=== PATIENT | female | born 1985 | race Caucasian/White ===

== ENCOUNTER → 2021-12-19 | Outpatient (CLI) | payer MEDICARE, MEDICAID ==
[~2021-12-19] MED LIST: CARB1TAB20; CELE100C; CLON-412 OR; CYMB1CAP5; CYMB1CAP5 OR; LABE1TAB11; LUNE2TAB; Lunesta OR; Metoprolol Tartrate OR; NORMODYNE; SIMV10TA2 OR; SOMA350T; TEGR200T; TRAZ100T; TRAZ100T OR; TRAZ150T OR; VIST50CA; ZOCO10TA; [UNRECOGNIZED DRUG - OTHER]
[2021-12-19 11:23] LABS: BASO # 0.1 10^3/uL (0.0-0.2); EOS # 0.4 10^3/uL (0.0-0.5); EOS % 5.1 % (0.0-3.0); HEMATOCRIT 41.7 % (36.0-47.0); HEMOGLOBIN 13.7 g/dl (12.0-15.5); LYMPH # 2.4 10^3/uL (1.5-5.0); LYMPH % 33.2 % (24.0-44.0); MEAN CORPUSCULAR HEMOGLOBIN 29.1 pg (27.0-33.0); MEAN CORPUSCULAR HGB CONC 32.9 g/dl (32.0-36.5); MEAN CORPUSCULAR VOLUME 88.7 fl (80.0-96.0); MONO # 0.5 10^3/uL (0.0-0.8); MONO % 6.3 % (2.0-8.0); NEUTROPHILS # 3.9 10^3/uL (1.5-8.5); NEUTROPHILS % 54.1 % (36.0-66.0); PLATELET COUNT, AUTOMATED 328 10^3/uL (150-450); WHITE BLOOD COUNT 7.2 10^3/uL (4.0-10.0)
[2021-12-19 11:34] LABS: INR 0.84; PARTIAL THROMBOPLASTIN TIME 27.1 SECONDS (25.9-37.0); PROTHROMBIN TIME 11.9 SECONDS (12.7-14.5)
== END ==
LOC: M LAB 10:24
PROVIDERS: ATTEND Psychiatry & Neurology Neurology
DX: G35 Multiple sclerosis (principal)

== ENCOUNTER → 2021-12-24 | Outpatient (CLI) | payer MEDICARE, MEDICAID ==
[2021-12-24 09:54] LABS: BASO # 0.1 10^3/uL (0.0-0.2); BASO % 1.2 % (0.0-1.0); EOS # 0.3 10^3/uL (0.0-0.5); EOS % 4.5 % (0.0-3.0); HEMATOCRIT 38.4 % (36.0-47.0); HEMOGLOBIN 12.8 g/dl (12.0-15.5); LYMPH # 2.7 10^3/uL (1.5-5.0); LYMPH % 39.5 % (24.0-44.0); MEAN CORPUSCULAR HEMOGLOBIN 29.3 pg (27.0-33.0); MEAN CORPUSCULAR HGB CONC 33.3 g/dl (32.0-36.5); MEAN CORPUSCULAR VOLUME 87.9 fl (80.0-96.0); MONO # 0.5 10^3/uL (0.0-0.8); MONO % 6.9 % (2.0-8.0); NEUTROPHILS # 3.3 10^3/uL (1.5-8.5); NEUTROPHILS % 47.8 % (36.0-66.0); PLATELET COUNT, AUTOMATED 324 10^3/uL (150-450); RED BLOOD COUNT 4.37 10^6/uL (4.00-5.40); WHITE BLOOD COUNT 6.8 10^3/uL (4.0-10.0)
[2021-12-24 10:05] LABS: INR 0.82; PROTHROMBIN TIME 11.7 SECONDS (12.7-14.5)
[2021-12-24 10:06] LABS: PARTIAL THROMBOPLASTIN TIME 26.8 SECONDS (25.9-37.0)
[2021-12-24 11:07] LABS: APPEARANCE, CSF CLEAR (CLEAR); COLOR, CSF COLORLESS (COLORLESS)
[2021-12-24 11:17] LABS: CSF TUBE# CELL CNT TUBE 3
[2021-12-24 11:29] LABS: CSF TUBE# GLU TUBE 1; CSF TUBE# TP TUBE 1; GLUCOSE CSF 55 MG/DL (40-75); TOTAL PROTEIN,CSF 64 MG/DL (15-45)
[2021-12-24 12:30] VITALS: BP 104/54
== END ==
LOC: M IRPRO 09:06
PROVIDERS: ATTEND Psychiatry & Neurology Neurology
DX: G35 Multiple sclerosis (principal)

== ENCOUNTER → 2022-01-19 | Outpatient (CLI) | payer MEDICARE, MEDICAID ==
[2022-01-19 17:35] LABS: BASO # 0.1 10^3/uL (0.0-0.2); EOS # 0.3 10^3/uL (0.0-0.5); EOS % 4.1 % (0.0-3.0); HEMATOCRIT 37.8 % (36.0-47.0); HEMOGLOBIN 12.3 g/dl (12.0-15.5); LYMPH # 2.3 10^3/uL (1.5-5.0); LYMPH % 37.4 % (24.0-44.0); MEAN CORPUSCULAR HEMOGLOBIN 28.9 pg (27.0-33.0); MEAN CORPUSCULAR HGB CONC 32.5 g/dl (32.0-36.5); MEAN CORPUSCULAR VOLUME 88.7 fl (80.0-96.0); MONO # 0.4 10^3/uL (0.0-0.8); MONO % 5.9 % (2.0-8.0); NEUTROPHILS # 3.2 10^3/uL (1.5-8.5); NEUTROPHILS % 51.4 % (36.0-66.0); PLATELET COUNT, AUTOMATED 279 10^3/uL (150-450); RED BLOOD COUNT 4.26 10^6/uL (4.00-5.40); WHITE BLOOD COUNT 6.2 10^3/uL (4.0-10.0)
[2022-01-19 18:15] LABS: HEMOGLOBIN A1c 5.3 %
[2022-01-19 18:45] LABS: ERYTHROCYTE SEDIMENTATION RATE 22 mm/hr (0-20)
[2022-01-19 19:11] LABS: ALBUMIN 3.7 GM/DL (3.2-5.2); ALT/SGPT 18 U/L (12-78); BILIRUBIN,TOTAL 0.3 MG/DL (0.2-1.0); BLOOD UREA NITROGEN 14 MG/DL (7-18); CARBON DIOXIDE LEVEL 25 MEQ/L (21-32); CHLORIDE LEVEL 112 MEQ/L (98-107); CREATININE FOR GFR 0.88 MG/DL (0.55-1.30); GLOMERULAR FILTRATION RATE > 60.0 (>60); GLUCOSE, FASTING 80 MG/DL (70-100); POTASSIUM SERUM 3.9 MEQ/L (3.5-5.1); RHEUMATOID FACTOR QUANT < 10.0 IU/ML (<15.0); SODIUM LEVEL 141 MEQ/L (136-145); TOTAL PROTEIN 6.9 GM/DL (6.4-8.2)
[2022-01-19 19:23] LABS: VITAMIN B12 LEVEL 352 PG/ML
[2022-01-19 19:24] LABS: FOLATE 7.8 NG/ML
[2022-01-19 20:05] LABS: HEPATITIS C VIRUS ABY INDEX > 11.0 INDEX (<0.8)
[2022-01-20 12:53] LABS: DRVV SCREEN 34.4 SEC
[2022-01-20 12:58] LABS: PTT LUPUS TYPE ANTICOAG SCREEN 0.9 (0-1.2)
== END ==
LOC: M LAB 16:20
PROVIDERS: ATTEND Psychiatry & Neurology Neurology
DX: G35 Multiple sclerosis (principal)

== ENCOUNTER 2023-06-10 08:17 | Outpatient (CLI) | payer MEDICARE, MEDICAID ==
[2023-06-10] VITALS (7 sets, daily range): BP systolic 108–127; BP diastolic 55–79; O2SAT 98–100
[~2023-06-10] VITALS: Ht 152.4 cm; Wt 94.0 kg
[~2023-06-10 08:17] MED LIST changes: +ALBUTEROL SULFATE 2.5MG/0.5ML INH NEB SOLN INH PRN; +EPINEPHrine INJ 1 MG/ML 1ML AMP IM PRN; +diphenhydrAMINE 50MG/ML VIAL IV PRN; +methylPREDNISolone 125MG 2ML VIAL IV PRN
[2023-06-10] MEDS ORDERED: diphenhydrAMINE 50MG/ML VIAL IV ONE (08:30)
[2023-06-10] MEDS ORDERED: NS 1,000 ML IV SCH (08:30)
[2023-06-10] MEDS ORDERED: methylPREDNISolone 125MG 2ML VIAL IV ONE (08:30)
[2023-06-10] MEDS ORDERED: ACETAMINOPHEN TAB 650MG DOSE (2X325MG) PO ONE (08:30)
[2023-06-10] MEDS ORDERED: OCRELIZUMAB 300 MG in NS 250 ML IV ONE (08:30)
[2023-06-10] MEDS ORDERED: ACET-897 PO (09:00)
[2023-06-10] MEDS ORDERED: LYRI150C PO (11:33)
[2023-06-10] MEDS ORDERED: BUPR8SUB SL (11:35)
[2023-06-10] MEDS ORDERED: ZOLP10TA2 PO (11:35)
[2023-06-10] MEDS ORDERED: CYCL5TAB PO (11:43)
[2023-06-10] MEDS ORDERED: CYCL-707 PO (11:43)
[2023-06-10] MEDS ORDERED: TOPA1TAB PO (11:43)
[2023-06-10] MEDS ORDERED: PROP10TA56 PO (11:43)
[2023-06-10] MEDS ORDERED: PANT20TA6 PO (11:43)
[2023-06-10] MEDS ORDERED: BUSP30TA PO (11:43)
[2023-06-10] MEDS ORDERED: LUNE2TAB28 PO (11:43)
[2023-06-10] MEDS ORDERED: BRIN1TAB3 PO (11:43)
[2023-06-10] MEDS ORDERED: FERR325T19 PO (11:43)
[2023-06-10] MEDS ORDERED: BACL10TA2 PO (11:45)
== END 2023-06-10 14:30 | disposition home or self-care (01) ==
LOC: M INFU 08:17
PROVIDERS: ATTEND Psychiatry & Neurology Neurology
DX: G35 Multiple sclerosis (principal)
CPT/HCPCS: 96365; 96375; J1200; J2350; J2930

== ENCOUNTER 2023-06-24 08:50 | Outpatient (CLI) | payer MEDICARE, MEDICAID ==
[~2023-06-24] VITALS: Ht 152.4 cm; Wt 95.0 kg
[~2023-06-24 08:50] MED LIST changes: +ACET-897 PO; +BACL10TA2 PO; +BRIN1TAB3 PO; +BUPR8SUB SL; +BUSP30TA PO; +CYCL-707 PO; +CYCL5TAB PO; +FERR325T19 PO; +LUNE2TAB28 PO; +LYRI150C PO; +PANT20TA6 PO; +PROP10TA56 PO; +TOPA1TAB PO; +ZOLP10TA2 PO
[2023-06-24] MEDS ORDERED: NS 1,000 ML IV SCH (09:00)
[2023-06-24] MEDS ORDERED: ACETAMINOPHEN TAB 650MG DOSE (2X325MG) PO ONE (09:00)
[2023-06-24] MEDS ORDERED: diphenhydrAMINE 50MG/ML VIAL IV ONE ×2 (09:00→09:50)
[2023-06-24] MEDS ORDERED: methylPREDNISolone 125MG 2ML VIAL IV ONE (09:00)
[2023-06-24] MEDS ORDERED: OCRELIZUMAB 300 MG in NS 250 ML IV ONE (09:00)
[2023-06-24 10:25] VITALS: BP 104/74; O2SAT 100
[2023-06-24 11:15] VITALS: BP 101/69; O2SAT 100
[2023-06-24 11:45] VITALS: BP 102/63; O2SAT 100
[2023-06-24 12:15] VITALS: BP 115/75; O2SAT 98
[2023-06-24 12:45] VITALS: BP 119/84; O2SAT 99
[2023-06-24 13:29] VITALS: BP 113/68; O2SAT 97
== END 2023-06-24 13:45 | disposition home or self-care (01) ==
LOC: M INFU 08:50
PROVIDERS: ATTEND Psychiatry & Neurology Neurology
DX: K50.80 Crohn's disease of both small and large intestine without complications (principal)
CPT/HCPCS: 96365; 96366; 96367; J1200; J2350; J2930

== ENCOUNTER → 2024-01-12 | Outpatient (CLI) | payer MEDICARE, MEDICAID ==
[~2024-01-12] VITALS: Ht 152.4 cm; Wt 94.5 kg
[~2024-01-12] MED LIST changes: +ACETAMINOPHEN TAB 650MG DOSE (2X325MG) PO ONE; +NS 1,000 ML IV SCH; +OCRELIZUMAB 600 MG in NS 500 ML IV ONE; +diphenhydrAMINE 50MG/ML VIAL IV ONE; +methylPREDNISolone 125MG 2ML VIAL IV ONE
[2024-01-12 08:20] VITALS: BP 118/80; O2SAT 100
[2024-01-12] MEDS: diphenhydrAMINE 50MG/ML VIAL IV ONE (08:59)
[2024-01-12] MEDS: ACETAMINOPHEN TAB 650MG DOSE (2X325MG) PO ONE (08:59)
[2024-01-12] MEDS: methylPREDNISolone 125MG 2ML VIAL IV ONE (08:59)
[2024-01-12] MEDS: OCRELIZUMAB 600 MG in NS 500 ML IV ONE (09:34)
[2024-01-12 10:00] VITALS: BP 117/68; O2SAT 100
[2024-01-12 10:30] VITALS: BP 108/70; O2SAT 100
[2024-01-12 11:00] VITALS: BP 97/88; O2SAT 100
[2024-01-12 12:00] VITALS: BP 101/84; O2SAT 100
[2024-01-12 13:40] VITALS: BP 110/73; O2SAT 100
== END ==
LOC: M INFU 08:21
PROVIDERS: ATTEND Psychiatry & Neurology Neurology
DX: G35 Multiple sclerosis (principal)
CPT/HCPCS: 96365; 96366; J1200; J2350; J2919

== ENCOUNTER 2024-06-13 07:57 | Outpatient (CLI) | payer MEDICARE, MEDICAID ==
[~2024-06-13] VITALS: Ht 152.4 cm; Wt 95.5 kg
[~2024-06-13 07:57] MED LIST changes: -ACETAMINOPHEN TAB 650MG DOSE (2X325MG) PO ONE; -ALBUTEROL SULFATE 2.5MG/0.5ML INH NEB SOLN INH PRN; -CYCL5TAB PO; +CYCL5TAB4 PO; -EPINEPHrine INJ 1 MG/ML 1ML AMP IM PRN; -NS 1,000 ML IV SCH; -OCRELIZUMAB 600 MG in NS 500 ML IV ONE; -diphenhydrAMINE 50MG/ML VIAL IV ONE; -diphenhydrAMINE 50MG/ML VIAL IV PRN; -methylPREDNISolone 125MG 2ML VIAL IV ONE; -methylPREDNISolone 125MG 2ML VIAL IV PRN
[2024-06-13] MEDS: diphenhydrAMINE 50MG/ML VIAL IV ONE (08:05)
[2024-06-13] MEDS: methylPREDNISolone 125MG 2ML VIAL IV ONE (08:05)
[2024-06-13] MEDS: ACETAMINOPHEN 325 MG TAB PO ONE (08:05)
[2024-06-13 08:16] VITALS: BP 110/68; O2SAT 100
[2024-06-13] MEDS: OCRELIZUMAB 600 MG in NS 500 ML IV ONE (08:51)
[2024-06-13 09:37] VITALS: BP 116/73; O2SAT 100
[2024-06-13 10:00] VITALS: BP 103/71; O2SAT 93
[2024-06-13 11:00] VITALS: BP 110/79; O2SAT 98
[2024-06-13 12:00] VITALS: BP 119/84; O2SAT 98
[2024-06-13 12:55] VITALS: BP 122/84; O2SAT 97
== END 2024-06-13 13:20 ==
LOC: M INFU 07:57
PROVIDERS: ATTEND Psychiatry & Neurology Neurology
DX: G35 Multiple sclerosis (principal)
CPT/HCPCS: 96365; 96366; 96375; J1200; J2350; J2919

== ENCOUNTER 2025-06-13 08:52 | Outpatient (CLI) | payer MEDICARE, MEDICAID ==
[2024-12-12 14:00] VITALS: TEMP 98
[~2025-06-13] VITALS: Ht 152.4 cm; Wt 97.7 kg
[~2025-06-13 08:52] MED LIST changes: +ALBUTEROL SULFATE 2.5 MG/0.5 ML INH CONCENTRATE NEB SOLN INH PRN; +EPINEPHrine INJ 1 MG/ML 1ML AMP IM PRN; +NS (Normal Saline) 0.9% 1,000 ML IV SCH; +ZOLP10TA11 PO; -ZOLP10TA2 PO; +diphenhydrAMINE 50 MG/ML VIAL IV PRN
[2025-06-13 09:00] VITALS: BP 150/86; O2SAT 100
[2025-06-13] MEDS: ACETAMINOPHEN 325 MG TAB PO ONE (09:11)
[2025-06-13] MEDS: diphenhydrAMINE 50 MG/ML VIAL IV ONE (09:24)
[2025-06-13] MEDS: OCRELIZUMAB 600 MG in NS 500 ML IV ONE (09:49)
[2025-06-13 10:30] VITALS: BP 101/67; O2SAT 100
[2025-06-13 11:00] VITALS: BP 106/79; O2SAT 100
[2025-06-13 11:30] VITALS: BP 103/66; O2SAT 100
[2025-06-13 12:00] VITALS: BP 104/66; O2SAT 99
[2025-06-13 14:00] VITALS: BP 107/69; O2SAT 99
== END 2025-06-13 13:55 | disposition home or self-care (01) ==
LOC: M INFU 08:52
PROVIDERS: ATTEND Psychiatry & Neurology Neurology
DX: G35.D Multiple sclerosis, unspecified (principal)
CPT/HCPCS: 96365; 96366; 96375; J2350; J2919